=== PATIENT | male | born 1960 | race Caucasian/White ===

== ENCOUNTER 2020-02-29 07:56 | Outpatient (CLI) | payer OTHER, SELFPAY | END 2020-02-29 07:57 | disposition home or self-care (01) | LOC: ANHAUDIO 07:57 | PROVIDERS: PCP Family Medicine; Visit Provider Family Medicine | DX: H93.11 Tinnitus, right ear (principal); H90.3 Sensorineural hearing loss, bilateral | CPT/HCPCS: 92557; 92567 ==

== ENCOUNTER 2021-05-22 12:52 | Emergency (ER) | payer OTHER, SELFPAY ==
[2021-05-22 13:01] VITALS: BP 144/82; PULSE 70; RESP 16; TEMP 36.6; O2SAT 98
--- NOTE | 2021-05-22 14:18 | ED.URI ---
HPI - URI/Sore Throat General Chief Complaint: Upper Respiratory Infection Stated Complaint: CHEST CONGESTION Time Seen by Provider: 05/22/21 14:05 Source: patient and RN notes reviewed Mode of arrival: ambulatory Limitations: no limitations History of Present Illness HPI Narrative: Patient presents today complaining of chest tightness, dry cough that is worse in the mornings and at night. Reports the symptoms have been present for 2.5 weeks, but worse today. He has been taking some cough medicine without relief. He has been vaccinated against COVID-19. Reports asthma as a child, but no problems as an adult. Patient also reports some burning and redness in his gums, that he believes is likely related to the nicotine pouches that he chews on, but he wanted these looked at as well. MD elicited complaint: cough Related Data Allergies Allergy/AdvReac Type Severity Reaction Status Date / Time No Known Allergies Allergy Verified 04/24/21 09:50 Review of Systems Review of Systems: CONSTITUTIONAL: Denies body aches, fever, chills, or sweats. EYES: Denies visual changes, redness, or discharge. ENT: Denies rhinorrhea, congestion, sore throat, or otalgia. +Gum redness and burning CARDIOVASCULAR: Denies chest pain, palpitations, or edema. RESPIRATORY: Denies dyspnea.+ Cough, chest tightness GASTROINTESTINAL: Denies abdominal pain, nausea, vomiting, or diarrhea. GENITOURINARY: Denies dysuria or hematuria. SKIN: Denies rash, itching, or wounds. MUSCULOSKELETAL: Denies back pain, joint pain, or myalgia. NEUROLOGIC: Denies headache, numbness, tingling, or weakness. PSYCH: Denies depression or anxiety. [facility] Family History Family History Father Family history of elevated blood lipids Family history of cardiovascular disease Mother Family history of malignant neoplasm of uterus Sibling Family history of malignant neoplasm of breast in first degree relative, Onset Age: 42 Social History Social History Alcohol intake: current Alcohol use details: Three beers daily Substance use: never Gender identity (if verbalized by the patient): Male Comments At time of signature, I have reviewed and agree with nursing past medical, surgical, social and family history unless otherwise noted. Please see nursing chart for further information. There is no relevant family history pertinent to the presenting complaint Exam Narrative: GENERAL: Well-appearing, well-nourished, and in no acute distress. HEAD: Normocephalic, atraumatic. EYES: EOMI. No redness or drainage. Conjunctivae normal. ENT: Mucous membranes pink and moist. Nares clear. No rhinorrhea. TMs normal bilaterally. Tube in the right ear. Throat normal. Uvula midline. Gums in the bilateral anterior upper gumline are erythematous and edematous. Gumline is receded on some of the teeth. NECK: Normal AROM. Supple. No lymphadenopathy. CHEST: No respiratory distress. Clear to auscultation. HEART: Regular rate and rhythm. No murmur appreciated. Normal peripheral pulses. EXTREMITIES: Normal range of motion. No edema. SKIN: Warm, dry, no rash. Capillary refill normal. Normal skin turgor. NEURO: No focal deficits. Alert and oriented x3. Gait steady. PSYCH: Normal affect. No signs of depression or anxiety. Course Vital Signs Vital signs: Vital Signs Temperature 98 F 05/22/21 13:01 Pulse Rate 70 05/22/21 13:01 Respiratory Rate 16 05/22/21 13:01 Blood Pressure 144/82 H 05/22/21 13:01 Pulse Oximetry 98 05/22/21 13:01 Temperature 98 F 05/22/21 13:01 Pulse Rate 70 05/22/21 13:01 Respiratory Rate 16 05/22/21 13:01 Blood Pressure 144/82 H 05/22/21 13:01 Pulse Oximetry 98 05/22/21 13:01 Reviewed. Pt has been instructed to follow up with his PCP regarding his elevated blood pressure today. MDM - URI/Sore Throat Differential Di
== END 2021-05-22 14:27 | disposition home or self-care (01) ==
PROVIDERS: Emergency Provider Nurse Practitioner; PCP Family Medicine
DX: J40 Bronchitis, not specified as acute or chronic (principal); K05.00 Acute gingivitis, plaque induced
CPT/HCPCS: 99213; G0463

== ENCOUNTER 2021-07-31 11:59 | Emergency (ER) | payer OTHER, SELFPAY ==
[2021-07-31 12:03] VITALS: BP 149/74; PULSE 91; RESP 16; TEMP 36.8; O2SAT 99
--- NOTE | 2021-07-31 12:05 | ED.EAR ---
HPI - Ear Problem General Chief complaint: Ear Stated complaint: EAR CONGESTION/PRESSURE/RINGING Time Seen by Provider: 07/31/21 12:05 Source: patient and RN notes reviewed History of Present Illness HPI Narrative: Patient is 61-year-old male who presents the urgent care with complaints of right ear congestion/pressure and ringing. Patient states he has had issues with the right ear for approximately a year and a half and had a tube placed by his ENT about a year ago. Patient states he did try to follow-up with his ENT but they were unable to see him until the of this month. Patient has not taken anything [id number] for the pressure or pain. Denies of any fevers or other upper respiratory complaints. Patient also states that 2 nights ago a dog bit him on the right wrist. Denies any fevers, redness or swelling to the area. Patient is up-to-date on tetanus shot. No other acute complaints. No acute distress noted. Patient read the plan of care. Some parts of this dictation were generated by voice recognition software and may contain typographical and/or grammatical inaccuracies. Related Data Allergies Allergy/AdvReac Type Severity Reaction Status Date / Time No Known Allergies Allergy Verified 05/29/21 14:38 Review of Systems Review of Systems: CONSTITUTIONAL: Denies fever, chills, or sweats. EYES: Denies visual changes, redness, or discharge. ENT: Denies rhinorrhea, congestion, sore throat. Reports of congestion/pressure and ringing of the right ear CARDIOVASCULAR: Denies chest pain, palpitations, or edema. RESPIRATORY: Denies cough or dyspnea. GASTROINTESTINAL: Denies abdominal pain, nausea, vomiting, or diarrhea. GENITOURINARY: Denies dysuria or hematuria. SKIN: Reports of a dog bite to the right wrist MUSCULOSKELETAL: Denies back pain, joint pain, or myalgia. NEUROLOGIC: Denies headache, numbness, or weakness. All other systems reviewed are negative, except as documented in HPI. [facility] Family History Family History Father Family history of elevated blood lipids Family history of cardiovascular disease Mother Family history of malignant neoplasm of uterus Sibling Family history of malignant neoplasm of breast in first degree relative, Onset Age: 42 Social History Social History (Updated 05/29/21 @ 14:38 by Cassie Peres [facility] Alcohol intake: current Alcohol use details: Three beers daily Substance use: never Gender identity (if verbalized by the patient): Male Comments At the time of my signature, I reviewed and agree with the nursing past medical, surgical, social, and family history. There is no relevant family history pertinent to the patient complaint. Exam Narrative: GENERAL: This is a well-nourished, well-developed patient, in no apparent distress. HEAD: normocephalic, atraumatic. EYES: PERRL. Sclera clear/white. Vision is grossly intact. EARS: External ears normal, auditory canals clear and without drainage, unable to visualize bilateral TMs due to cerumen impaction. Hearing grossly intact. NOSE: External nose normal with no obvious nasal discharge, nares without redness, no rhinorrhea. THROAT: Mucous membranes moist NECK: Neck supple CARDIOVASCULAR: Regular rate and rhythm without murmurs, gallops, or rubs. RESPIRATORY: Clear to auscultation. Breath sounds equal bilaterally. No wheezes, rales, or rhonchi. SKIN: 0.25 puncture wound noted to the dorsal aspect of the right wrist with 3 small surrounding superficial abrasions. Warm, intact with no suspicious lesions or rash, good texture and turgor. NEURO: awake, alert, and oriented to person, place and time. There were no obvious focal neurologic abnormalities. EXTREMITIES: No clubbing, cyanosis, or edema. Positive strong right radial pulse with capillary refill less than 2 seconds. Range of motion to right upper extremity within normal limits. Course Vital Signs Vit
== END 2021-07-31 12:29 | disposition home or self-care (01) ==
PROVIDERS: Emergency Provider Nurse Practitioner Family; PCP Family Medicine
DX: H92.01 Otalgia, right ear (principal); H61.23 Impacted cerumen, bilateral; S61.531A Puncture wound without foreign body of right wrist, initial encounter; W54.0XXA Bitten by dog, initial encounter
CPT/HCPCS: 99213; G0463

== ENCOUNTER → 2023-10-08 10:12 | Outpatient (CLI) | payer OTHER, SELFPAY ==
--- NOTE | ~2023-10-08 | CT_ITS ---
EXAMINATION: CT lung screening DATE: 10/08/2023 10:22 INDICATION: Nicotine dependence TECHNIQUE: Computed tomography (CT) of the chest was performed without intravenous contrast. The dose -length product was 137.21 mGy-cm. Automated exposure control and iterative reconstruction technique were employed. COMPARISON: Chest dated 06/30/2011 FINDINGS: Heart size normal. No significant pleural or pericardial effusion. No thoracic lymphadenopa thy. No significant vascular abnormality. Upper abdomen is unremarkable. No endobronchial lesions. No pneumothorax. No focal airspace disease. There is a 3 mm fissural nodule on the left, likely benign. Calcified granulomas are present in the right upper lobe. Mild thoracic spondylosis. IMPRESSION: 1. Lung-RADS category 2: Benign appearance or behavior. Continue annual screening with noncontrast lo w-dose chest CT in 12 months. Reviewed, dictated and finalized at location L. [facility] IMPRESSION: 1. Lung-RADS category 2: Benign appearance or behavior. Continue annual screeni ng with noncontrast low-dose chest CT in 12 months.
== END ==
PROVIDERS: PCP Internal Medicine; Visit Provider Internal Medicine
DX: Z12.2 Encounter for screening for malignant neoplasm of respiratory organs (principal); F17.211 Nicotine dependence, cigarettes, in remission
CPT/HCPCS: 71271